=== PATIENT | female | born 1995 | race Caucasian/White ===

== ENCOUNTER 2017-02-02 23:47 | Emergency (ER) | payer BC ==
[~2017-02-02] VITALS: Ht 154.9 cm; Wt 50.0 kg
[2017-02-03] MEDS ORDERED: MORPHINE SULFATE 4 MG/ML, 1ML ONE (00:20)
[2017-02-03] MEDS ORDERED: ONDANSETRON 2MG/ML, 2ML ONE ×2 (00:21→01:20)
[2017-02-03] MEDS ORDERED: MORPHINE SULFATE 4 MG/ML, 1ML IVPush PRN (00:30)
[2017-02-03] MEDS ORDERED: ONDANSETRON 2MG/ML, 2ML IVPush ONE ×2 (00:30→01:30)
[2017-02-03] MEDS ORDERED: SODIUM CHLORIDE FLUSH 10ML SYR IVF ONE (00:30)
[2017-02-03] MEDS ORDERED: SODIUM CHLORIDE 0.9% 1,000ML IVBOLUS ONE (00:30)
[2017-02-03 00:52] LABS: ASPARTATE AMINO TRANSFERASE 24 U/L (15-37); BLOOD UREA NITROGEN 10 mg/dL (7-18)
[2017-02-03] MEDS ORDERED: POTASSIUM CHLORIDE 10 MEQ TABLET.ER PO ONE (01:30)
[2017-02-03 01:31] VITALS: BP 118/79
[2017-02-03] MEDS ORDERED: PROMETHAZINE 25 MG/ML, 1ML ONE (02:03)
[2017-02-03] MEDS ORDERED: PROMETHAZINE 25 MG/ML, 1ML IM ONE (02:30)
== END 2017-02-03 02:26 | disposition home or self-care (01) ==
LOC: ED 23:59
DX: R11.2 Nausea with vomiting, unspecified (principal); R10.13 Epigastric pain; E87.6 Hypokalemia
CPT/HCPCS: 36415; 80053; 83690; 84703; 85025; 96361; 96372; 96374; 96375; 96376; 99284; J2405; J2550; J7030

== ENCOUNTER 2019-10-22 09:05 | Emergency (ER) | payer OTHER ==
[~2019-10-22] VITALS: Ht 154.9 cm; Wt 55.0 kg
--- NOTE | 2019-10-22 09:54 | NUR ---
TO [facility] FROM LOBBY.
[2019-10-22] MEDS ORDERED: ONDANSETRON ODT 4 MG ONE (10:28)
[2019-10-22] MEDS ORDERED: KETOROLAC 60 MG/2 ML ONE (10:28)
[2019-10-22] MEDS ORDERED: ONDANSETRON ODT 4 MG PO ONE (10:30)
[2019-10-22] MEDS ORDERED: KETOROLAC 30 MG/1 ML IM ONE (10:30)
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
--- NOTE | 2019-10-22 10:34 | NUR ---
Pt to xray via gursg. Will administer medications upon return.
--- NOTE | 2019-10-22 11:15 | NUR ---
C-COLLAR REMOVED BY PA. DISCHARGE INSTRUCTIONS GIVEN TO PATIENT WITH WORK NOTE AND PRESCRIPTIONS. PT VERBALIZES UNDERSTANDING OF ALL INSTRUCTIONS AND FOLLOW UP.
[2019-10-22 11:20] VITALS: BP 112/68
== END 2019-10-22 11:22 | disposition home or self-care (01) ==
LOC: ED 10:10
DX: S16.1XXA Strain of muscle, fascia and tendon at neck level, initial encounter (principal); V49.09XA Driver injured in collision with other motor vehicles in nontraffic accident, initial encounter; Y93.89 Activity, other specified; Y92.410 Unspecified street and highway as the place of occurrence of the external cause; Y99.8 Other external cause status
CPT/HCPCS: 72125; 96372; 99284; J1885; Q0162

== ENCOUNTER 2021-01-12 19:48 | Emergency (ER) | payer OTHER ==
[~2021-01-12] VITALS: Ht 154.9 cm; Wt 61.8 kg
[2021-01-12 20:26] LABS: BASOPHILS % (AUTO) 1 % (0-1); EOSINOPHILS % (AUTO) 1 % (1-7); LYMPHOCYTES % (AUTO) 14 % (22-44); MEAN CORPUSCULAR HEMOGLOBIN 30.1 pg (27.0-34.8); MEAN CORPUSCULAR HGB CONC 34.6 g/dL (32.4-35.8); MEAN PLATELET VOLUME 8.5 fL (7.4-10.4); MONOCYTES % (AUTO) 10 % (2-9); NEUTROPHILS % (AUTO) 74 % (42-75); PLATELET COUNT 230 x10^3/uL (130-400); RED CELL DISTRIBUTION WIDTH 12.9 % (9.6-15.2)
[2021-01-12 20:28] LABS: MD NO
[2021-01-12] MEDS ORDERED: ONDANSETRON 2MG/ML, 2ML IVPush ONE (20:30)
[2021-01-12] MEDS ORDERED: SODIUM CHLORIDE FLUSH 10ML SYR IVF ONE (20:30)
[2021-01-12] MEDS ORDERED: SODIUM CHLORIDE 0.9% 1,000ML IVBOLUS ONE ×2 (20:30→23:30)
[2021-01-12 20:35] LABS: ALBUMIN 4.2 g/dL (3.4-5.0); ANION GAP 6 mmol/L (5-15); CALCIUM 9.2 mg/dL (8.5-10.1); CHLORIDE 108 mmol/L (98-107); CREATININE 0.75 mg/dL (0.55-1.02)
[2021-01-12] MEDS ORDERED: ONDANSETRON 2MG/ML, 2ML ONE (22:24)
[2021-01-13] MEDS ORDERED: AMOXICILLIN 500 MG CAPSULE ONE (00:25)
[2021-01-13] MEDS ORDERED: AMOXICILLIN 500 MG CAPSULE PO ONE (00:30)
[2021-01-13 00:46] VITALS: BP 110/83
== END 2021-01-13 00:48 | disposition home or self-care (01) ==
LOC: ED 23:10
DX: R11.2 Nausea with vomiting, unspecified (principal); R51.9 Headache, unspecified; R00.0 Tachycardia, unspecified; R09.81 Nasal congestion
CPT/HCPCS: 36415; 80048; 82040; 84703; 85025; 93005; 96361; 96374; 99284; J2405; J7030

== ENCOUNTER 2021-03-01 17:50 | Emergency (ER) | payer OTHER ==
[~2021-03-01] VITALS: Ht 154.9 cm; Wt 64.9 kg
[2021-03-01 17:57] VITALS: BP 127/85
--- NOTE | 2021-03-01 18:56 | NUR ---
ALL RESULTS ARE BACK AT THIS TIME. CHART UP FOR RECHECK.
== END 2021-03-01 19:20 | disposition home or self-care (01) ==
LOC: ED 18:20
DX: S29.012A Strain of muscle and tendon of back wall of thorax, initial encounter (principal); X58.XXXA Exposure to other specified factors, initial encounter; Y93.89 Activity, other specified; Y92.89 Other specified places as the place of occurrence of the external cause; Y99.8 Other external cause status
CPT/HCPCS: 72072; 99283